=== PATIENT | female | born 1990 | race Caucasian/White ===

== ENCOUNTER 2016-10-12 09:51 | Emergency (ER) | payer OTHER ==
[2016-10-12 09:58] VITALS: TEMP 98.1
[2016-10-12] MEDS ORDERED: NS 1,000 ML IV ONE (10:11)
[2016-10-12] MEDS ORDERED: RANITIDINE 50 MG/2 ML VIAL IV ONE (10:11)
--- NOTE | 2016-10-12 10:27 | EDPHY ---
H & P Time Seen by Provider: 10/12/16 10:10 HPI/ROS: CHIEF COMPLAINT: Allergic reaction to bee sting HISTORY OF PRESENT ILLNESS: This patient is a healthy 26 year old female with known anaphylactic reaction to bee stings presenting today after being stung in the face about one hour ago. She states her previous allergic reaction developed slowly, over 24 hours, and she has not taken her EpiPen today. She endorses swollen lips and tongue, and nausea. She denies shortness of breath, hives, or other associated symptoms. REVIEW OF SYSTEMS: Constitutional: No fever, no chills Eyes: No visual changes ENT: No sore throat Respiratory: No cough, no shortness of breath Cardiac: No chest pain Gastrointestinal: No nausea, no vomiting, no abdominal pain Genitourinary: No hematuria, no dysuria Musculoskeletal: No leg pain or swelling Skin: No rash Neurological: No headache, no numbness, no weakness Psychiatric: No depression Past Medical/Surgical History: Denies Social History: Lives in [place] Smoking Status: Never smoked Physical Exam: General Appearance: Alert, no distress Eyes: Pupils equal and round, no periorbital swelling ENT, Mouth: Mucous membranes moist, no oral swelling Neck: Normal inspection, no stridor Respiratory: Lungs are clear to auscultation, no wheezing Cardiovascular: Regular rate and rhythm Neurological: A&O, nonfocal, normal gait Skin: No hives Extremities: No swelling Psychiatric: Mood and affect normal Constitutional: Initial Vital Signs Temperature (C) 36.7 C 10/12/16 09:57 Heart Rate 100 10/12/16 09:57 Respiratory Rate 20 10/12/16 09:57 Blood Pressure 151/102 H 10/12/16 09:57 O2 Sat (%) 98 10/12/16 09:57 O2 Delivery Mode Room Air O2 (L/minute) 2 Allergies/Adverse Reactions: latex Allergy (Verified 10/12/16 09:53) Penicillins Allergy (Verified 10/12/16 09:53) Home Medications: Medication Instructions Recorded EPINEPHRINE [EPIPEN] 0.3 mg IM ONCE #2 syr 10/27/15 EPINEPHRINE [EPIPEN] 0.3 mg IM ONCE #2 syr 10/12/16 predniSONE 60 mg PO DAILY #9 tab 10/12/16 Medical Decision Making ED Course/Re-evaluation: This patient is a healthy 26 year old presenting after being stung in the face by a bee about one hour ago. Physical exam is unremarkable. Given her prior history of anaphylaxis and sensation of lip and tongue swelling, I will proceed with treatment for anaphylaxis. IV established. Administered 50mg IV Benadryl, 0.3mg IV Epinephrine. Administered 1L IV NS. Monitored for signs of developing anaphylactic reaction. 11:40 am- The patient is feeling much better. Physical exam remains normal. She will be discharged home in good condition with instructions to take Claritin and Benadryl for the next three days. Strict return precautions discussed. The patient is comfortable with this plan. Differential Diagnosis: Differential diagnosis includes though it is not limited to laryngeal edema, bronchospasm, hypotension, angioedema. - Data Points Medications Given: Discontinued Medications Diphenhydramine HCl (Benadryl Injection) 50 mg IVP EDNOW ONE Stop: 10/12/16 10:12 Last Admin: 10/12/16 10:29 Dose: 25 mg Epinephrine HCl (Epinephrine) 0.3 mg IM EDNOW ONE Stop: 10/12/16 10:12 Last Admin: 10/12/16 10:30 Dose: 0.3 mg Sodium Chloride (Ns) 1,000 mls @ 0 mls/hr IV EDNOW ONE; Wide Open PRN Reason: Protocol Stop: 10/12/16 10:12 Last Admin: 10/12/16 10:30 Dose: 1,000 mls Ranitidine HCl (Zantac) 50 mg IV EDNOW ONE Stop: 10/12/16 10:12 Last Admin: 10/12/16 10:30 Dose: 50 mg Departure - Departure Disposition: Home, Routine, Self-Care Clinical Impression: Acute anaphylaxis Qualifiers: Encounter type: initial encounter Qualified Code(s): T78.2XXA - Anaphylactic shock, unspecified, initial encounter Condition: Good Instructions: Insect Bite or Sting (ED), Anaphylaxis (ED) Additional Instructions: 1. Take Claritin each morning and Benadryl each night for the next three days. 2. Return to the Emergency Department if you develop hives, difficulty breathing , swelling in your mouth or throat, or other worsening of condition. 3. Follow up with your primary care provider for continued management of your allergy regimen. Referrals: Cynthia Guo MD [Medical Doctor] - As per Instructions Prescriptions: EPINEPHRINE [EPIPEN] 0.3 mg IM ONCE #2 syr predniSONE 60 mg PO DAILY #9 tab Report Scribed for: Katey Vincent Report Scribed by: Delisa Mayberry Date of Report: 10/12/16 Time of Report: 10:27 Physician Review and Approval Statement: 10/12/16 10:27 Portions of this note were transcribed by a medical and scientific illustrator. I personally performed a history, physical exam, medical decision making, and confirmed accuracy of information the transcribed note.
[2016-10-12 10:32] VITALS: RESP 16
[2016-10-12 11:19] VITALS: PULSE 104
[2016-10-12 12:00] VITALS: BP 128/82; O2SAT 96
== END 2016-10-12 11:58 | disposition home or self-care (01) ==
DX: T78.2XXA Anaphylactic shock, unspecified, initial encounter (principal); E86.9 Volume depletion, unspecified; Z91.040 Latex allergy status
CPT/HCPCS: 96374